=== PATIENT | male | born 1990 | race Caucasian/White ===

== ENCOUNTER 2023-08-24 14:59 | Inpatient (IN) | payer MEDICAID ==
[~2023-08-24] VITALS: Ht 172.7 cm; Wt 110.7 kg
[2023-08-24 15:25] VITALS: RESP 41
[2023-08-24] MEDS ORDERED: LORAZEPAM 2MG/ML INJ IV ONE (15:45)
[2023-08-24] MEDS: FUROSEMIDE 40MG/4ML VIAL IVP ONE (15:55)
[2023-08-24] MEDS: ONDANSETRON HCL 4MG/2ML INJ IV ONE (15:55)
[2023-08-24] MEDS: MORPHINE SULFATE 4 MG/ML INJ (FOR IV/IM USE) IV ONE ×2 (15:55→18:30)
[2023-08-24] MEDS: NITROGLYCERIN OINT 1GM/INCH UDPKT TD ONE (15:55)
[2023-08-24] MEDS ORDERED: NITROGLYCERIN 50MG PREMIX 250 ML IV ONE (16:45)
[2023-08-24 16:59] LABS: EOSINOPHILS % 0.1 % (0.0-5.0); HEMATOCRIT. 41.7 % (42.0-52.0); HEMOGLOBIN. 13.2 g/dL (14.0-18.0); LYMPHOCYTES % 8.4 % (20.0-50.0); MEAN CORPUSCULAR HEMOGLOBIN 25.4 pg (28.0-32.0); MEAN CORPUSCULAR HGB CONC 31.7 g/dL (31.0-37.0); MEAN PLATELET VOLUME 8.9 fl (7.4-10.4); MONOCYTES % 7.9 % (2.0-8.0); NEUTROPHILS % 82.6 % (40.0-76.0); PLATELET 283 x1000/uL (130-400); RED BLOOD CELL COUNT 5.21 mill/uL (4.7-6.1); RED CELL DISTRIBUTION WIDTH 14.7 % (11.6-14.6); WHITE BLOOD COUNT 15.6 x1000/uL (4.5-11.0)
[2023-08-24 17:05] LABS: CHLORIDE 103 mEq/L (98-107); POTASSIUM 3.9 mEq/L (3.5-5.1); SODIUM 139 mEq/L (136-145)
[2023-08-24 17:06] LABS: CARBON DIOXIDE 26 mEq/L (21-32)
[2023-08-24] MEDS: CLONIDINE 0.1MG TABLET PO ONE (17:06)
[2023-08-24] MEDS: HYDRALAZINE 20MG/ML VIAL IV ONE (17:06)
[2023-08-24] MEDS: NITROGLYCERIN 50MG PREMIX 250 ML IV PRN (17:07)
[2023-08-24 17:11] LABS: CREATININE 1.8 mg/dL (0.6-1.3); GLUCOSE 174 mg/dL (70-105)
[2023-08-24 17:12] LABS: UREA NITROGEN BLOOD 24 mg/dL (9-23)
[2023-08-24 17:16] LABS: TROPONIN I HIGH SENSITIVITY 191 ng/L (3.0-53)
[2023-08-24] MEDS: IPRATROPIUM/ALBUTEROL 0.5-3(2.5)MG/3ML NEB ONE (17:16)
[2023-08-24 17:50] LABS: BG BASE EXCESS -1.6 mmol/L (-2.0-2.0); BG CARBOXYHEMOGLOBIN 0.4 % (0.5-1.5); BG DEOXYHEMOGLOBIN 0.2 % (0.0-5.0); BG FRACTION INSPIRED OXYGEN 100; BG HCO3 ACT 26.9 mmol/L (22.0-26.0); BG METHEMOGLOBIN 0.5 % (0.0-1.5); BG OXYGEN SATURATION 99.8 % (92.0-98.5); BG OXYHEMOGLOBIN 98.9 % (94.0-97.0); BG PCO2 61.6 mmHg (35.0-45.0); BG PH 7.258 (7.350-7.450); BG PO2 459.8 mmHg (75.0-100.0); BG SAMPLE SITE RIGHT RADIAL; BG TOTAL HEMOGLOBIN 14.6 g/dL (12.0-18.0); BG TOTAL RESPIRATORY RATE 44 b/min; BG VENT MODE MASK - BIPAP
[2023-08-24 20:38] VITALS: RESP 32
[2023-08-24 22:00] LABS: BG CARBOXYHEMOGLOBIN 0.5 % (0.5-1.5); BG DEOXYHEMOGLOBIN 0.2 % (0.0-5.0); BG FRACTION INSPIRED OXYGEN 100; BG HCO3 ACT 29.5 mmol/L (22.0-26.0); BG METHEMOGLOBIN 0.5 % (0.0-1.5); BG OXYGEN SATURATION 99.8 % (92.0-98.5); BG OXYHEMOGLOBIN 98.8 % (94.0-97.0); BG PH 7.185 (7.350-7.450); BG PO2 370.3 mmHg (75.0-100.0); BG SAMPLE SITE RIGHT BRACHIAL; BG TOTAL HEMOGLOBIN 14.1 g/dL (12.0-18.0); BG VENT MODE MASK - BIPAP
[2023-08-24 22:15] VITALS: PULSE 112; RESP 19
[2023-08-24] MEDS ORDERED: FUROSEMIDE 20MG/2ML VIAL IVP ONE (22:30)
[2023-08-24] MEDS: PROPOFOL 10MG/ML 100ML 100 ML IV SCH (22:54)
[2023-08-25] VITALS (38 sets, daily range): BP systolic 94–145; BP diastolic 61–76; PULSE 84–107; RESP 8–27; TEMP 99.2–102.6
[2023-08-25] MEDS: FUROSEMIDE 40MG/4ML VIAL IV NR (00:29)
[2023-08-25 03:25] LABS: BG BASE EXCESS 0.9 mmol/L (-2.0-2.0); BG CARBOXYHEMOGLOBIN 0.5 % (0.5-1.5); BG DEOXYHEMOGLOBIN 1.2 % (0.0-5.0); BG FRACTION INSPIRED OXYGEN 100; BG HCO3 ACT 30.4 mmol/L (22.0-26.0); BG METHEMOGLOBIN 0.4 % (0.0-1.5); BG OXYGEN SATURATION 98.8 % (92.0-98.5); BG OXYHEMOGLOBIN 97.9 % (94.0-97.0); BG PCO2 73.3 mmHg (35.0-45.0); BG PH 7.236 (7.350-7.450); BG PO2 151.3 mmHg (75.0-100.0); BG SAMPLE SITE RIGHT BRACHIAL; BG TOTAL HEMOGLOBIN 13.8 g/dL (12.0-18.0); BG VENT MODE VENT - AC
[2023-08-25] MEDS: HYDRALAZINE 20MG/ML VIAL IV ONE (07:27)
[2023-08-25] MEDS ORDERED: PROPOFOL 10MG/ML 100ML 100 ML IV PRN (07:45)
[2023-08-25 09:16] LABS: HEMATOCRIT. 38.8 % (42.0-52.0); HEMOGLOBIN. 11.9 g/dL (14.0-18.0); MEAN CORPUSCULAR HEMOGLOBIN 24.4 pg (28.0-32.0); MEAN CORPUSCULAR HGB CONC 30.6 g/dL (31.0-37.0); MEAN CORPUSCULAR VOLUME 79.8 fL (80.0-94.0); PLATELET 241 x1000/uL (130-400); RED BLOOD CELL COUNT 4.86 mill/uL (4.7-6.1); WHITE BLOOD COUNT 18.4 x1000/uL (4.5-11.0)
[2023-08-25 09:17] LABS: DIFFERENTIAL COMMENT 1
[2023-08-25 09:25] LABS: BG BASE EXCESS 2.8 mmol/L (-2.0-2.0); BG CARBOXYHEMOGLOBIN 0.6 % (0.5-1.5); BG DEOXYHEMOGLOBIN 0.7 % (0.0-5.0); BG FRACTION INSPIRED OXYGEN 100; BG HCO3 ACT 31.3 mmol/L (22.0-26.0); BG METHEMOGLOBIN 0.3 % (0.0-1.5); BG OXYGEN SATURATION 99.3 % (92.0-98.5); BG OXYHEMOGLOBIN 98.4 % (94.0-97.0); BG PCO2 67.9 mmHg (35.0-45.0); BG PH 7.281 (7.350-7.450); BG PO2 204.3 mmHg (75.0-100.0); BG SAMPLE SITE RIGHT RADIAL; BG TOTAL HEMOGLOBIN 12.8 g/dL (12.0-18.0); BG VENT MODE VENT - AC
[2023-08-25 09:33] LABS: POTASSIUM 4.1 mEq/L (3.5-5.1)
[2023-08-25 09:34] LABS: CALCIUM 7.4 mg/dL (8.7-10.4)
[2023-08-25 09:39] LABS: CREATININE 1.9 mg/dL (0.6-1.3)
[2023-08-25 10:10] LABS: TROPONIN I HIGH SENSITIVITY 344 ng/L (3.0-53)
[2023-08-25 10:12] LABS: ANISOCYTOSIS 1+; MICROCYTOSIS 1+; PLATELET ESTIMATE NORMAL
[2023-08-25] MEDS ORDERED: ONDANSETRON HCL 4MG/2ML INJ IV PRN (10:30)
[2023-08-25] MEDS ORDERED: FENTANYL 2500MCG/250ML PMX 250 ML IV PRN (11:00)
[2023-08-25] MEDS: PANTOPRAZOLE SODIUM 40 MG/VIAL IV SCH (11:21)
[2023-08-25] MEDS: PIPERACILLIN/TAZO 3.375G/50ML 50 ML IV SCH (11:21)
[2023-08-25] MEDS: ASPIRIN 81MG TABLET PO SCH (11:21)
[2023-08-25] MEDS: FUROSEMIDE 40MG/4ML VIAL IVP SCH (11:21)
[2023-08-25] MEDS: ACETAMINOPHEN 325MG TABLET PO PRN (11:23)
[2023-08-25] MEDS: PROPOFOL 10MG/ML 100ML 100 ML IV PRN (12:10)
[2023-08-25 13:13] LABS: THYROID STIMULATING HORMONE 0.63 uIU/mL (0.55-4.78)
[2023-08-25] MEDS: ENOXAPARIN 40MG/0.4ML SYR SUBCUT SCH (13:47)
[2023-08-25] MEDS: IPRATROPIUM/ALBUTEROL 0.5-3(2.5)MG/3ML NEB HHN SCH (15:07)
[2023-08-25 21:42] LABS: CLARITY URINE CLOUDY (CLEAR); COLOR URINE DARK YELLOW (YELLOW); GLUCOSE URINE NEGATIVE (NEGATIVE); KETONES URINE NEGATIVE (NEGATIVE); LEUKOCYTE ESTERASE URINE TRACE (NEGATIVE); NITRITE URINE NEGATIVE (NEGATIVE); OCCULT BLOOD URINE 2+ (NEGATIVE); PH URINE 5.5 (4.5-8.0); PROTEIN URINE 3+ (NEGATIVE); SPECIFIC GRAVITY URINE 1.018 (1.005-1.030)
[2023-08-25 21:54] LABS: *AMPHETAMINES SCREEN URINE NEGATIVE (NEGATIVE); *BARBITURATES SCREEN URINE NEGATIVE (NEGATIVE); *COCAINE SCREEN URINE NEGATIVE (NEGATIVE); BACTERIA URINE 3+; METHADONE URINE SCREEN NEGATIVE (NEGATIVE); OPIATES URINE SCREEN PRESUMPTIVE POSITIVE (NEGATIVE); SQUAMOUS EPITHELIAL CELL URINE FEW /lpf (RARE/1+)
[2023-08-25 21:55] LABS: ECSTASY MDMA SCREEN URINE NEGATIVE (NEGATIVE); PHENCYCLIDINE URINE SCREEN NEGATIVE (NEGATIVE); WBC URINE 0-2 /hpf (0-2)
[2023-08-25 21:58] LABS: CREATININE URINE RANDOM 159.1 mg/dL
[2023-08-26] VITALS (110 sets, daily range): BP systolic 98–165; BP diastolic 59–106; PULSE 86–107; RESP 0–29; TEMP 98.7–100.7
[2023-08-26 04:59] LABS: POTASSIUM 4.4 mEq/L (3.5-5.1)
[2023-08-26 05:00] LABS: CALCIUM 7.6 mg/dL (8.7-10.4)
[2023-08-26 05:33] LABS: HEMATOCRIT. 36.7 % (42.0-52.0); HEMOGLOBIN. 11.6 g/dL (14.0-18.0); MEAN CORPUSCULAR HEMOGLOBIN 25.5 pg (28.0-32.0); MEAN CORPUSCULAR HGB CONC 31.7 g/dL (31.0-37.0); MEAN CORPUSCULAR VOLUME 80.4 fL (80.0-94.0); MEAN PLATELET VOLUME 9.7 fl (7.4-10.4); PLATELET 213 x1000/uL (130-400); RED BLOOD CELL COUNT 4.56 mill/uL (4.7-6.1); WHITE BLOOD COUNT 21.3 x1000/uL (4.5-11.0)
[2023-08-26] MEDS: PIPERACILLIN/TAZO 3.375G/50ML 50 ML IV SCH (05:39)
[2023-08-26 07:55] LABS: DIFFERENTIAL COMMENT 1
[2023-08-26 08:04] LABS: BG CARBOXYHEMOGLOBIN 0.3 % (0.5-1.5); BG DEOXYHEMOGLOBIN 2.1 % (0.0-5.0); BG HCO3 ACT 28.4 mmol/L (22.0-26.0); BG METHEMOGLOBIN 0.2 % (0.0-1.5); BG OXYGEN SATURATION 97.9 % (92.0-98.5); BG OXYHEMOGLOBIN 97.4 % (94.0-97.0); BG PCO2 51.6 mmHg (35.0-45.0); BG PH 7.358 (7.350-7.450); BG PO2 105.6 mmHg (75.0-100.0); BG SAMPLE SITE RIGHT RADIAL; BG TOTAL HEMOGLOBIN 12.6 g/dL (12.0-18.0); BG VENT MODE VENT - AC
[2023-08-26] MEDS: SODIUM CHLORIDE 0.9% 1,000 ML IV SCH (11:47)
[2023-08-26] MEDS: PROPOFOL 10MG/ML 100ML 100 ML IV PRN (13:33)
[2023-08-26 16:39] LABS: PLATELET ESTIMATE NORMAL
[2023-08-27] VITALS (93 sets, daily range): BP systolic 96–160; BP diastolic 52–95; PULSE 71–107; RESP 0–37; TEMP 98–102.8
[2023-08-27] MEDS: IPRATROPIUM/ALBUTEROL 0.5-3(2.5)MG/3ML NEB HHN PRN (02:18)
[2023-08-27 04:44] LABS: BASOPHILS % 0.4 % (0.0-2.0); DIFFERENTIAL COMMENT 0; EOSINOPHILS % 0.1 % (0.0-5.0); HEMATOCRIT. 35.4 % (42.0-52.0); HEMOGLOBIN. 11.2 g/dL (14.0-18.0); LYMPHOCYTES % 8.2 % (20.0-50.0); MEAN CORPUSCULAR HEMOGLOBIN 24.8 pg (28.0-32.0); MEAN CORPUSCULAR HGB CONC 31.5 g/dL (31.0-37.0); MEAN CORPUSCULAR VOLUME 78.8 fL (80.0-94.0); MEAN PLATELET VOLUME 9.6 fl (7.4-10.4); MONOCYTES % 4.5 % (2.0-8.0); NEUTROPHILS % 86.8 % (40.0-76.0); PLATELET 228 x1000/uL (130-400); RED CELL DISTRIBUTION WIDTH 15.1 % (11.6-14.6); WHITE BLOOD COUNT 12.3 x1000/uL (4.5-11.0)
[2023-08-27 05:06] LABS: POTASSIUM 4.1 mEq/L (3.5-5.1)
[2023-08-27 05:07] LABS: CALCIUM 8.1 mg/dL (8.7-10.4)
[2023-08-27 08:39] LABS: BG BASE EXCESS 3.5 mmol/L (-2.0-2.0); BG CARBOXYHEMOGLOBIN 0.2 % (0.5-1.5); BG DEOXYHEMOGLOBIN 2.3 % (0.0-5.0); BG FRACTION INSPIRED OXYGEN 60; BG HCO3 ACT 29.9 mmol/L (22.0-26.0); BG METHEMOGLOBIN 0.2 % (0.0-1.5); BG OXYGEN SATURATION 97.7 % (92.0-98.5); BG OXYHEMOGLOBIN 97.3 % (94.0-97.0); BG PCO2 53.7 mmHg (35.0-45.0); BG PH 7.364 (7.350-7.450); BG PO2 108.7 mmHg (75.0-100.0); BG SAMPLE SITE RIGHT RADIAL; BG TOTAL HEMOGLOBIN 11.9 g/dL (12.0-18.0); BG VENT MODE VENT - AC
[2023-08-27] MEDS: DEXMEDETOMIDINE 400 MCG/100 ML 100 ML IV PRN (09:50)
[2023-08-27] MEDS ORDERED: MIDAZOLAM 100MG/100ML PMX 100 ML IV PRN (11:15)
[2023-08-27] MEDS: PIPERACILLIN/TAZO 3.375G/50ML 50 ML IV SCH (16:39)
[2023-08-28] VITALS (74 sets, daily range): BP systolic 99–169; BP diastolic 63–112; PULSE 79–120; RESP 20–36; TEMP 98–102.7
[2023-08-28 04:28] LABS: BASOPHILS % 0.7 % (0.0-2.0); DIFFERENTIAL COMMENT 0; EOSINOPHILS % 0.4 % (0.0-5.0); HEMOGLOBIN. 11.7 g/dL (14.0-18.0); LYMPHOCYTES % 8.6 % (20.0-50.0); MEAN CORPUSCULAR HEMOGLOBIN 24.8 pg (28.0-32.0); MEAN CORPUSCULAR HGB CONC 31.6 g/dL (31.0-37.0); MEAN CORPUSCULAR VOLUME 78.7 fL (80.0-94.0); MEAN PLATELET VOLUME 9.4 fl (7.4-10.4); MONOCYTES % 4.9 % (2.0-8.0); NEUTROPHILS % 85.4 % (40.0-76.0); PLATELET 255 x1000/uL (130-400); RED BLOOD CELL COUNT 4.69 mill/uL (4.7-6.1); WHITE BLOOD COUNT 11.8 x1000/uL (4.5-11.0)
[2023-08-28 04:32] LABS: POTASSIUM 4.1 mEq/L (3.5-5.1)
[2023-08-28 04:34] LABS: CALCIUM 8.7 mg/dL (8.7-10.4)
[2023-08-28 04:38] LABS: CREATININE 3.4 mg/dL (0.6-1.3)
[2023-08-28 09:10] LABS: COMPLEMENT C3 161 mg/dL (82-167); COMPLEMENT C4 33 mg/dL (12-38)
[2023-08-28 13:11] LABS: ANTI-NUCLEAR ANTIBODIES DIRECT Negative (Negative)
[2023-08-28] MEDS ORDERED: FENTANYL 2500MCG/250ML PMX 250 ML IV PRN (18:00)
[2023-08-28] MEDS: PIPERACILLIN/TAZO 3.375G/50ML 50 ML IV SCH (20:46)
[2023-08-29] VITALS (106 sets, daily range): BP systolic 122–201; BP diastolic 72–153; PULSE 80–126; RESP 17–43; TEMP 98.1–101.7; O2SAT 93–99
[2023-08-29 05:21] LABS: POTASSIUM 4.1 mEq/L (3.5-5.1)
[2023-08-29 05:22] LABS: CALCIUM 8.7 mg/dL (8.7-10.4)
[2023-08-29 05:24] LABS: BASOPHILS % 0.9 % (0.0-2.0); DIFFERENTIAL COMMENT 0; HEMATOCRIT. 37.1 % (42.0-52.0); HEMOGLOBIN. 11.8 g/dL (14.0-18.0); LYMPHOCYTES % 13.8 % (20.0-50.0); MEAN CORPUSCULAR HEMOGLOBIN 24.9 pg (28.0-32.0); MEAN CORPUSCULAR HGB CONC 31.7 g/dL (31.0-37.0); MEAN CORPUSCULAR VOLUME 78.5 fL (80.0-94.0); MEAN PLATELET VOLUME 9.3 fl (7.4-10.4); MONOCYTES % 8.1 % (2.0-8.0); NEUTROPHILS % 75.2 % (40.0-76.0); PLATELET 265 x1000/uL (130-400); RED BLOOD CELL COUNT 4.72 mill/uL (4.7-6.1); RED CELL DISTRIBUTION WIDTH 14.8 % (11.6-14.6); WHITE BLOOD COUNT 10.6 x1000/uL (4.5-11.0)
[2023-08-29 05:26] LABS: CREATININE 3.1 mg/dL (0.6-1.3)
[2023-08-29] MEDS: HYDRALAZINE 20MG/ML VIAL IV PRN (08:39)
[2023-08-29 09:45] LABS: BG BASE EXCESS 1.1 mmol/L (-2.0-2.0); BG CARBOXYHEMOGLOBIN 0.4 % (0.5-1.5); BG DEOXYHEMOGLOBIN 3.2 % (0.0-5.0); BG FRACTION INSPIRED OXYGEN 40; BG HCO3 ACT 26.6 mmol/L (22.0-26.0); BG METHEMOGLOBIN 0.3 % (0.0-1.5); BG OXYGEN SATURATION 96.8 % (92.0-98.5); BG OXYHEMOGLOBIN 96.1 % (94.0-97.0); BG PCO2 45.6 mmHg (35.0-45.0); BG PH 7.383 (7.350-7.450); BG PO2 94.9 mmHg (75.0-100.0); BG SAMPLE SITE RIGHT RADIAL; BG TOTAL HEMOGLOBIN 12.8 g/dL (12.0-18.0); BG VENT MODE VENT - CPAP
[2023-08-29] MEDS: LABETALOL 5MG/ML 4ML INJ IV NR (10:36)
[2023-08-29 13:11] LABS: ATYPICAL P-ANCA <1:20 titer (Neg:<1:20); CYTOPLASMIC C-ANCA <1:20 titer (Neg:<1:20); PERINUCLEAR P-ANCA <1:20 titer (Neg:<1:20)
[2023-08-29] MEDS: NICARDIPINE 50 MG in SODIUM CHLORIDE 0.9% 230 ML IV PRN (14:55)
[2023-08-29 17:07] LABS: ANTI-MYELOPEROXIDASE AB < 0.2 units (0.0-0.9); ANTI-PROTEINASE 3 ABS < 0.2 units (0.0-0.9)
[2023-08-29] MEDS: HYDRALAZINE 20MG/ML VIAL IV SCH (18:10)
[2023-08-30] VITALS (87 sets, daily range): BP systolic 131–169; BP diastolic 66–112; PULSE 102–114; RESP 18–38; TEMP 97.7–98.9; O2SAT 94–98
[2023-08-30 04:07] LABS: TROPONIN I HIGH SENSITIVITY 250 ng/L (3.0-53)
[2023-08-30] MEDS ORDERED: NITROGLYCERIN 0.4MG TABLET SL SL PRN (04:30)
[2023-08-30 05:03] LABS: BASOPHILS % 0.4 % (0.0-2.0); DIFFERENTIAL COMMENT 0; EOSINOPHILS % 2.3 % (0.0-5.0); HEMATOCRIT. 39.2 % (42.0-52.0); HEMOGLOBIN. 12.3 g/dL (14.0-18.0); LYMPHOCYTES % 7.4 % (20.0-50.0); MEAN CORPUSCULAR HEMOGLOBIN 24.8 pg (28.0-32.0); MEAN CORPUSCULAR HGB CONC 31.5 g/dL (31.0-37.0); MEAN CORPUSCULAR VOLUME 78.7 fL (80.0-94.0); MEAN PLATELET VOLUME 9.4 fl (7.4-10.4); MONOCYTES % 7.7 % (2.0-8.0); NEUTROPHILS % 82.2 % (40.0-76.0); PLATELET 298 x1000/uL (130-400); RED BLOOD CELL COUNT 4.98 mill/uL (4.7-6.1); RED CELL DISTRIBUTION WIDTH 14.9 % (11.6-14.6); WHITE BLOOD COUNT 16.2 x1000/uL (4.5-11.0)
[2023-08-30 05:12] LABS: POTASSIUM 4.1 mEq/L (3.5-5.1)
[2023-08-30 05:14] LABS: CALCIUM 8.4 mg/dL (8.7-10.4)
[2023-08-30 05:17] LABS: CREATININE 2.5 mg/dL (0.6-1.3)
[2023-08-30 09:41] LABS: BG DEOXYHEMOGLOBIN 3.7 % (0.0-5.0); BG FRACTION INSPIRED OXYGEN 60; BG HCO3 ACT 25.8 mmol/L (22.0-26.0); BG METHEMOGLOBIN 0.3 % (0.0-1.5); BG OXYGEN SATURATION 96.3 % (92.0-98.5); BG PCO2 46.1 mmHg (35.0-45.0); BG PH 7.365 (7.350-7.450); BG PO2 88.3 mmHg (75.0-100.0); BG SAMPLE SITE RIGHT RADIAL; BG TOTAL HEMOGLOBIN 13.6 g/dL (12.0-18.0); BG VENT MODE COOL AEROSOL
[2023-08-30] MEDS: HYDRALAZINE HCL 25MG TABLET PO SCH (10:30)
[2023-08-30] MEDS: ISOSORBIDE MONONITRATE 30MG TABLET SR 24HR PO SCH (14:06)
[2023-08-30] MEDS: HYDRALAZINE HCL 50MG TABLET PO SCH (21:02)
[2023-08-30] MEDS: HYDRALAZINE 20MG/ML VIAL IV PRN (22:43)
[2023-08-31] VITALS (8 sets, daily range): BP systolic 109–178; BP diastolic 83–107; PULSE 105–117; RESP 17–25; TEMP 97–98.7; O2SAT 97
[2023-08-31] MEDS: ACETYLCYSTEINE 200MG/ML 20% VIAL 4ML INH SCH (00:42)
[2023-08-31] MEDS ORDERED: HYDROCODONE/ACETAMINOPHEN 5/325MG TABLET PO PRN (01:00)
[2023-08-31] MEDS ORDERED: NALOXONE HCL 0.4MG/ML VIAL IV PRN (01:15)
[2023-08-31 06:58] LABS: BASOPHILS % 0.6 % (0.0-2.0); DIFFERENTIAL COMMENT 0; EOSINOPHILS % 6.7 % (0.0-5.0); HEMATOCRIT. 38.1 % (42.0-52.0); HEMOGLOBIN. 11.8 g/dL (14.0-18.0); LYMPHOCYTES % 7.4 % (20.0-50.0); MEAN CORPUSCULAR HEMOGLOBIN 24.4 pg (28.0-32.0); MEAN CORPUSCULAR VOLUME 78.7 fL (80.0-94.0); MEAN PLATELET VOLUME 9.8 fl (7.4-10.4); MONOCYTES % 9.2 % (2.0-8.0); NEUTROPHILS % 76.1 % (40.0-76.0); PLATELET 342 x1000/uL (130-400); RED BLOOD CELL COUNT 4.84 mill/uL (4.7-6.1); RED CELL DISTRIBUTION WIDTH 15.2 % (11.6-14.6); WHITE BLOOD COUNT 12.8 x1000/uL (4.5-11.0)
[2023-08-31 07:03] LABS: CALCIUM 8.6 mg/dL (8.7-10.4); POTASSIUM 4.5 mEq/L (3.5-5.1)
[2023-08-31] MEDS ORDERED: HYDRALAZINE 20MG/ML VIAL IV PRN (08:15)
[2023-08-31] MEDS: FUROSEMIDE 40MG/4ML VIAL IVP SCH (09:07)
[2023-08-31] MEDS: DOXAZOSIN MESYLATE 2MG TABLET PO SCH (09:08)
[2023-08-31] MEDS: ISOSORBIDE MONONITRATE 60MG TABLET SR 24HR PO SCH (09:08)
[2023-08-31] MEDS: HYDRALAZINE HCL 100MG TABLET PO SCH (13:39)
[2023-08-31] MEDS ORDERED: THROAT LOZENGES-BENZOCAINE/MENTH/CETYLPYRD CL LOZENGES MM PRN (14:30)
[2023-09-01] VITALS (7 sets, daily range): BP systolic 129–159; BP diastolic 78–94; PULSE 78–124; RESP 18–26; TEMP 97.8–98.6; O2SAT 98
[2023-09-01 06:17] LABS: POTASSIUM 4.1 mEq/L (3.5-5.1)
[2023-09-01 06:19] LABS: CALCIUM 8.6 mg/dL (8.7-10.4)
[2023-09-01 06:23] LABS: CREATININE 2.2 mg/dL (0.6-1.3)
[2023-09-01 07:30] LABS: BASOPHILS % 0.5 % (0.0-2.0); DIFFERENTIAL COMMENT 0; EOSINOPHILS % 7.1 % (0.0-5.0); HEMATOCRIT. 35.9 % (42.0-52.0); HEMOGLOBIN. 11.1 g/dL (14.0-18.0); LYMPHOCYTES % 9.9 % (20.0-50.0); MEAN CORPUSCULAR HEMOGLOBIN 24.7 pg (28.0-32.0); MEAN CORPUSCULAR VOLUME 79.6 fL (80.0-94.0); MEAN PLATELET VOLUME 9.4 fl (7.4-10.4); MONOCYTES % 8.5 % (2.0-8.0); PLATELET 343 x1000/uL (130-400); RED BLOOD CELL COUNT 4.51 mill/uL (4.7-6.1); RED CELL DISTRIBUTION WIDTH 14.6 % (11.6-14.6); WHITE BLOOD COUNT 9.2 x1000/uL (4.5-11.0)
[2023-09-01] MEDS: METOPROLOL TARTRATE 25MG TABLET PO SCH (21:07)
[2023-09-02] VITALS (7 sets, daily range): BP systolic 122–147; BP diastolic 64–83; PULSE 79–109; RESP 18–25; TEMP 97–98.6; O2SAT 98
[2023-09-02 07:06] LABS: HEMATOCRIT 34.5 % (42.0-52.0); HEMOGLOBIN 10.8 g/dL (14.0-18.0); MEAN CORPUSCULAR HEMOGLOBIN 24.6 pg (28.0-32.0); MEAN CORPUSCULAR HGB CONC 31.2 g/dL (31.0-37.0); MEAN CORPUSCULAR VOLUME 78.9 fL (80.0-94.0); PLATELET 385 x1000/uL (130-400); RED BLOOD CELL COUNT 4.37 mill/uL (4.7-6.1); RED CELL DISTRIBUTION WIDTH 14.5 % (11.6-14.6); WHITE BLOOD COUNT 9.4 x1000/uL (4.5-11.0)
[2023-09-02 07:07] LABS: POTASSIUM 3.9 mEq/L (3.5-5.1)
[2023-09-02 07:08] LABS: CALCIUM 8.6 mg/dL (8.7-10.4)
[2023-09-02 07:13] LABS: CREATININE 2.1 mg/dL (0.6-1.3)
[2023-09-03] VITALS (9 sets, daily range): BP systolic 125–152; BP diastolic 70–92; PULSE 84–106; RESP 16–20; TEMP 97.3–99; O2SAT 97–98
[2023-09-03] MEDS: FUROSEMIDE 40MG/4ML VIAL IVP SCH (06:30)
[2023-09-03 09:24] LABS: BASOPHILS % 0.7 % (0.0-2.0); DIFFERENTIAL COMMENT 0; HEMATOCRIT. 34.3 % (42.0-52.0); LYMPHOCYTES % 9.4 % (20.0-50.0); MEAN CORPUSCULAR HEMOGLOBIN 24.9 pg (28.0-32.0); MEAN CORPUSCULAR VOLUME 77.9 fL (80.0-94.0); MEAN PLATELET VOLUME 8.8 fl (7.4-10.4); MONOCYTES % 7.5 % (2.0-8.0); NEUTROPHILS % 77.4 % (40.0-76.0); PLATELET 405 x1000/uL (130-400); RED CELL DISTRIBUTION WIDTH 14.6 % (11.6-14.6); WHITE BLOOD COUNT 11.1 x1000/uL (4.5-11.0)
[2023-09-03 09:30] LABS: POTASSIUM 3.7 mEq/L (3.5-5.1)
[2023-09-03 09:36] LABS: CREATININE 1.9 mg/dL (0.6-1.3)
[2023-09-04] VITALS (8 sets, daily range): BP systolic 113–156; BP diastolic 64–88; PULSE 92–110; RESP 20–22; TEMP 97.5–98.8; O2SAT 93–100
[2023-09-04 05:24] LABS: CALCIUM 8.7 mg/dL (8.7-10.4)
[2023-09-04 05:29] LABS: CREATININE 1.9 mg/dL (0.6-1.3)
[2023-09-04 06:38] LABS: BASOPHILS % 0.8 % (0.0-2.0); DIFFERENTIAL COMMENT 0; EOSINOPHILS % 3.5 % (0.0-5.0); HEMATOCRIT. 33.3 % (42.0-52.0); HEMOGLOBIN. 10.6 g/dL (14.0-18.0); LYMPHOCYTES % 10.2 % (20.0-50.0); MEAN CORPUSCULAR HEMOGLOBIN 24.5 pg (28.0-32.0); MEAN CORPUSCULAR HGB CONC 31.8 g/dL (31.0-37.0); MEAN CORPUSCULAR VOLUME 77.3 fL (80.0-94.0); MONOCYTES % 6.2 % (2.0-8.0); NEUTROPHILS % 79.3 % (40.0-76.0); PLATELET 424 x1000/uL (130-400); RED BLOOD CELL COUNT 4.31 mill/uL (4.7-6.1); RED CELL DISTRIBUTION WIDTH 14.4 % (11.6-14.6); WHITE BLOOD COUNT 11.4 x1000/uL (4.5-11.0)
[2023-09-04] MEDS ORDERED: FURO-151 MT (14:31)
[2023-09-04] MEDS ORDERED: METO25TA6 PO (14:31)
[2023-09-04] MEDS ORDERED: DOXA-14 PO (14:31)
[2023-09-04] MEDS ORDERED: HYDR100T26 PO (14:31)
== END 2023-09-04 18:15 | disposition home or self-care (01) | DRG 720 ==
LOC: ER 14:59 → EDBEDREQ 21:14 → EDBEDREQTM 21:14 → MICUNO 08-25 17:36 → 8WST 08-31 00:15
PROVIDERS: ADMIT Internal Medicine; ATTEND Internal Medicine
PROC: 5A1955Z Respiratory Ventilation, Greater than 96 Consecutive Hours (ICD-10-PCS; principal; 2023-08-25)
PROC: 0BH18EZ Insertion of Endotracheal Airway into Trachea, Via Natural or Artificial Opening Endoscopic (ICD-10-PCS; 2023-08-25)
PROC: 02HV33Z Insertion of Infusion Device into Superior Vena Cava, Percutaneous Approach (ICD-10-PCS; 2023-08-26)
PROC: 5A1D70Z Performance of Urinary Filtration, Intermittent, Less than 6 Hours Per Day (ICD-10-PCS; 2023-08-26)
PROC: 5A1D70Z Performance of Urinary Filtration, Intermittent, Less than 6 Hours Per Day (ICD-10-PCS; 2023-08-28)
PROC: 5A1D70Z Performance of Urinary Filtration, Intermittent, Less than 6 Hours Per Day (ICD-10-PCS; 2023-08-29)
PROC: 5A1D70Z Performance of Urinary Filtration, Intermittent, Less than 6 Hours Per Day (ICD-10-PCS; 2023-09-01)
DX: A41.9 Sepsis, unspecified organism (principal); N17.0 Acute kidney failure with tubular necrosis; I50.31 Acute diastolic (congestive) heart failure; I21.4 Non-ST elevation (NSTEMI) myocardial infarction; J96.01 Acute respiratory failure with hypoxia; J96.02 Acute respiratory failure with hypercapnia; I13.0 Hypertensive heart and chronic kidney disease with heart failure and stage 1 through stage 4 chronic kidney disease, or unspecified chronic kidney disease; J18.9 Pneumonia, unspecified organism; N17.9 Acute kidney failure, unspecified; N18.9 Chronic kidney disease, unspecified; R65.20 Severe sepsis without septic shock; E78.1 Pure hyperglyceridemia
CPT/HCPCS: 31500; 36415; 36600; 71045; 76770; 78580; 80048; 80061; 80305; 81003; 82040; 82375; 82570; 82805; 83036; 83520; 83605; 83880; 83930; 83935; 84145; 84156; 84300; 84443; 84478; 84484; 84540; 85025; 85027; 85379; 86038; 86160; 86256; 86705; 86709; 87070; 87340; 90935; 93005; 93306; 93970; 94002; 94003; 94640; 94660; 97162; 99291; A6261; C9113; J0360; J1642; J1650; J1940; J2250; J2270; J2405; J2543; J2704; J3010; J3490; J7050; J7608; Q9957